=== PATIENT | female | born 1990 | race Two or more races ===

== ENCOUNTER 2021-06-23 20:10 | Emergency (ER) | payer OTHER ==
[2021-06-23] MEDS ORDERED: Ondansetron PF 4 MG/2 ML Vial ONE (20:31)
[2021-06-23] MEDS ORDERED: Acetaminophen 500 MG TAB ONE (20:31)
[2021-06-23 20:52] LABS: #Monocytes 0.2 10x3/uL (0.0-1.1); %Basophils 0.4 % (0.0-2.0); %Lymphocytes 15.5 % (18.0-47.0); %Monocytes 8.1 % (0.0-10.0); Hemoglobin 12.5 g/dL (12.0-15.5); Mean Corpuscular HGB CONC 33.1 g/dL (32.0-36.0); Mean Corpuscular Hemoglobin 30.1 pg (27.0-33.0); Mean Corpuscular Volume 91.1 fl (81.6-98.3); Mean Platelet Volume 9.7 fl (7.4-10.4); Platelet Count 191 10x3/uL (150-450); RBC Distribution Width 13.1 % (11.5-14.5); Red Blood Cell (RBC) Count 4.15 10x6/uL (3.90-5.03); White Blood Cell (WBC) Count 2.8 10x3/uL (3.5-10.5)
[2021-06-23 20:53] LABS: #Neutrophils 2.2 10x3/uL (1.5-8.4)
[2021-06-23 20:56] LABS: BHCG - Serum Negative (NEGATIVE); Pregs Control Background? CLEAR/WHITE (CLR/WHITE); Pregs Control Bar Appear? YES (CONTROL BAR)
[2021-06-23 21:03] LABS: ALT (SGPT) 9 U/L (8-55); AST (SGOT) 17 U/L (5-34); Albumin 4.3 g/dL (3.5-5.0); Alkaline Phosphatase 42 U/L (40-110); Anion Gap 13 mmol/L (10-20); BUN (Urea Nitrogen) 12 mg/dL (7.0-18.7); Bilirubin, Total 0.2 mg/dL (0.2-1.2); Calc. Creatinine Clearance 0 mL/min (70-130); Calcium 8.8 mg/dL (7.8-10.44); Carbon Dioxide 21 mmol/L (22-29); Chloride 105 mmol/L (98-107); Globulin 2.9 g/dL (2.4-3.5); Glucose 92 mg/dL (70-105); Protein, Total 7.2 g/dL (6.0-8.3); Sodium 135 mmol/L (136-145)
[2021-06-23] MEDS ORDERED: Fentanyl 100 MCG/2 ML VIAL ONE (22:58)
[2021-06-23 23:48] LABS: SARS-CoV-2 NAA Rapid Test DETECTED (NotDetected)
[2021-06-24] MEDS ORDERED: Ibuprofen 200 MG TAB ONE (00:31)
[2021-06-24] MEDS ORDERED: Fentanyl 100 MCG/2 ML VIAL ONE (00:31)
== END 2021-06-24 02:46 | disposition home or self-care (01) ==
LOC: CSHERS 20:10
DX: U07.1 COVID-19 (principal)
CPT/HCPCS: 36415; 71045; 80053; 83605; 83880; 84484; 84703; 85025; 93005; 96374; 96375; 96376; J2405; J3010; U0002